=== PATIENT | female | born 1950 | race Caucasian/White ===

== ENCOUNTER 2019-12-03 14:43 | Emergency (ER) | payer MEDICARE ==
[2019-12-03 14:54] VITALS: TEMP 97.9
[2019-12-03] MEDS ORDERED: NALOXONE 0.4 MG/ML 1 ML VIAL IV STA (14:57)
[2019-12-03] MEDS ORDERED: SODIUM CHLORIDE 0.9% 1,000 ML IV STA (14:57)
[2019-12-03] MEDS ORDERED: SODIUM CHLORIDE 0.9% 500 ML 500 ML IV STA (14:57)
--- NOTE | 2019-12-03 14:59 | ED ---
Altered Mental Status HPI - General Chief Complaint: Altered Mental Status Stated Complaint: Confusion Time Seen by Provider: 12/03/19 14:56 Source: patient, RN notes reviewed, old records reviewed Mode of arrival: ambulatory Limitations: no limitations - History of Present Illness Initial Comments: This is a 69-year-old female to the ER for evaluation presents today for evaluation regards to altered mental status concern over the last 3 days patient and talking to people who aren't there not acting appropriately and drug problem and has never had problems like this before. Patient evaluating the ER denying homicidal or suicidal thoughts Drugs - Related Data Allergies Allergy/AdvReac Type Severity Reaction Status Date / Time No Known Allergies Allergy Verified 12/03/19 14:53 Review of Systems ROS Statement: Those systems with pertinent positive or pertinent negative responses have been documented in the HPI. ROS Other: All systems not noted in ROS Statement are negative. Past Medical History Past Medical History: No Reported History History of Any Multi-Drug Resistant Organisms: None Reported Past Surgical History: No Surgical Hx Reported Past Psychological History: Anxiety Smoking Status: Former smoker Past Alcohol Use History: None Reported Past Drug Use History: None Reported General Exam Limitations: no limitations Course Vital Signs 12/03/19 12/03/19 12/03/19 14:48 15:18 16:00 Temperature 97.9 F Pulse Rate 88 84 Respiratory 18 15 15 Rate Blood Pressure 146/94 131/98 O2 Sat by Pulse 99 98 Oximetry 12/03/19 17:00 Temperature Pulse Rate 76 Respiratory 15 Rate Blood Pressure 135/91 O2 Sat by Pulse 98 Oximetry - Reevaluation(s) Reevaluation #1: 12/03/19 21:56 Medical records reviewed Reevaluation #2: 12/03/19 21:56 Patient was made medically clear for psych and seen by psychiatry here in the emergency department Reevaluation #3: 12/03/19 21:56 Patient remains without suicidal or homicidal thoughts Medical Decision Making - Medical Decision Making 61 female seen at [facility] here in the ER deemed stable for discharge home patient will be discharged follow-up as an outpatient with mental health - Lab Data Result diagrams: 12/03/19 16:05 12/03/19 16:05 Lab Results 12/03/19 12/03/19 12/03/19 Range/Units 16:05 16:05 16:05 WBC 4.7 (3.8-10.6) k/uL RBC 3.96 (3.80-5.40) m/uL Hgb 11.9 (11.4-16.0) gm/dL Hct 37.1 (34.0-46.0) % MCV 93.7 (80.0-100.0) fL MCH 30.1 (25.0-35.0) pg MCHC 32.2 (31.0-37.0) g/dL RDW 12.5 (11.5-15.5) % Plt Count 201 (150-450) k/uL Neutrophils % 70 % Lymphocytes % 20 % Monocytes % 6 % Eosinophils % 1 % Basophils % 1 % Neutrophils # 3.3 (1.3-7.7) k/uL Lymphocytes # 1.0 (1.0-4.8) k/uL Monocytes # 0.3 (0-1.0) k/uL Eosinophils # 0.1 (0-0.7) k/uL Basophils # 0.0 (0-0.2) k/uL PT 10.1 (9.0-12.0) sec INR 1.0 (<1.2) APTT 23.2 (22.0-30.0) sec VBG pH 7.33 (7.31-7.41) VBG pCO2 53 H (37-51) mmHg VBG HCO3 27 (24-28) mmol/L Sodium (137-145) mmol/L Potassium (3.5-5.1) mmol/L Chloride (98-107) mmol/L Carbon Dioxide (22-30) mmol/L Anion Gap mmol/L BUN (7-17) mg/dL Creatinine (0.52-1.04) mg/dL Est GFR (CKD-EPI)AfAm (>60 ml/min/1.73 sqM) Est GFR (CKD-EPI)NonAf (>60 ml/min/1.73 sqM) Glucose (74-99) mg/dL Plasma Lactic Acid Marv (0.7-2.0) mmol/L Calcium (8.4-10.2) mg/dL Total Bilirubin (0.2-1.3) mg/dL AST (14-36) U/L ALT (4-34) U/L Alkaline Phosphatase (38-126) U/L Ammonia (<30) umol/L Creatine Kinase (30-135) U/L Troponin I (0.000-0.034) ng/mL Total Protein (6.3-8.2) g/dL Albumin (3.5-5.0) g/dL Lipase (23-300) U/L TSH (0.465-4.680) mIU/L Urine Color Urine Appearance (Clear) Urine pH (5.0-8.0) Ur Specific [place] (1.001-1.035) Urine Protein (Negative) Urine Glucose (UA) (Negative) Urine Ketones (Negative) Urine Blood (Negative) Urine Nitrite (Negative) Urine Bilirubin (Negative) Urine Urobilinogen (<2.0) mg/dL Ur Leukocyte Esterase (Negative) Salicylates mg/dL Urine Opiates Screen (NotDetected) Ur Oxycodone Screen (NotDetected) Urine Methadone Screen (NotDetected) Ur Propoxyphene Screen (NotDetected) Acetaminophen ug/mL Ur Barbiturates Screen (NotDetected) U Tricyclic Antidepress (NotDetected) Ur Phencyclidine Scrn (NotDetected) Ur Amphetamines Screen (NotDetected) U Methamphetamines Scrn (NotDetected) U Benzodiazepines Scrn (NotDetected) Urine Cocaine Screen (NotDetected) U Marijuana (THC) Screen (NotDetected) 12/03/19 12/03/19 12/03/19 Range/Units 16:05 16:05 16:05 WBC (3.8-10.6) k/uL RBC (3.80-5.40) m/uL Hgb (11.4-16.0) gm/dL Hct (34.0-46.0) % MCV (80.0-100.0) fL MCH (25.0-35.0) pg MCHC (31.0-37.0) g/dL RDW (11.5-15.5) % Plt Count (150-450) k/uL Neutrophils % % Lymphocytes % % Monocytes % % Eosinophils % % Basophils % % Neutrophils # (1.3-7.7) k/uL Lymphocytes # (1.0-4.8) k/uL Monocytes # (0-1.0) k/uL Eosinophils # (0-0.7) k/uL Basophils # (0-0.2) k/uL PT (9.0-12.0) sec INR (<1.2) APTT (22.0-30.0) sec VBG pH (7.31-7.41) VBG pCO2 (37-51) mmHg VBG HCO3 (24-28) mmol/L Sodium 139 (137-145) mmol/L Potassium 3.8 (3.5-5.1) mmol/L Chloride 109 H (98-107) mmol/L Carbon Dioxide 26 (22-30) mmol/L Anion Gap 4 mmol/L BUN 23 H (7-17) mg/dL Creatinine 0.75 (0.52-1.04) mg/dL Est GFR (CKD-EPI)AfAm >90 (>60 ml/min/1.73 sqM) Est GFR (CKD-EPI)NonAf 82 (>60 ml/min/1.73 sqM) Glucose 91 (74-99) mg/dL Plasma Lactic Acid Marv 0.6 L (0.7-2.0) mmol/L Calcium 8.6 (8.4-10.2) mg/dL Total Bilirubin 0.2 (0.2-1.3) mg/dL AST 23 (14-36) U/L ALT 14 (4-34) U/L Alkaline Phosphatase 87 (38-126) U/L Ammonia <9 (<30) umol/L Creatine Kinase 27 L (30-135) U/L Troponin I <0.012 (0.000-0.034) ng/mL Total Protein 6.2 L (6.3-8.2) g/dL Albumin 3.5 (3.5-5.0) g/dL Lipase 178 (23-300) U/L TSH 1.020 (0.465-4.680) mIU/L Urine Color Urine Appearance (Clear) Urine pH (5.0-8.0) Ur Specific [place] (1.001-1.035) Urine Protein (Negative) Urine Glucose (UA) (Negative) Urine Ketones (Negative) Urine Blood (Negative) Urine Nitrite (Negative) Urine Bilirubin (Negative) Urine Urobilinogen (<2.0) mg/dL Ur Leukocyte Esterase (Negative) Salicylates <1.0 mg/dL Urine Opiates Screen (NotDetected) Ur Oxycodone Screen (NotDetected) Urine Methadone Screen (NotDetected) Ur Propoxyphene Screen (NotDetected) Acetaminophen <10.0 ug/mL Ur Barbiturates Screen (NotDetected) U Tricyclic Antidepress (NotDetected) Ur Phencyclidine Scrn (NotDetected) Ur Amphetamines Screen (NotDetected) U Methamphetamines Scrn (NotDetected) U Benzodiazepines Scrn (NotDetected) Urine Cocaine Screen (NotDetected) U Marijuana (THC) Screen (NotDetected) 12/03/19 12/03/19 Range/Units 16:28 16:28 WBC (3.8-10.6) k/uL RBC (3.80-5.40) m/uL Hgb (11.4-16.0) gm/dL Hct (34.0-46.0) % MCV (80.0-100.0) fL MCH (25.0-35.0) pg MCHC (31.0-37.0) g/dL RDW (11.5-15.5) % Plt Count (150-450) k/uL Neutrophils % % Lymphocytes % % Monocytes % % Eosinophils % % Basophils % % Neutrophils # (1.3-7.7) k/uL Lymphocytes # (1.0-4.8) k/uL Monocytes # (0-1.0) k/uL Eosinophils # (0-0.7) k/uL Basophils # (0-0.2) k/uL PT (9.0-12.0) sec INR (<1.2) APTT (22.0-30.0) sec VBG pH (7.31-7.41) VBG pCO2 (37-51) mmHg VBG HCO3 (24-28) mmol/L Sodium (137-145) mmol/L Potassium (3.5-5.1) mmol/L Chloride (98-107) mmol/L Carbon Dioxide (22-30) mmol/L Anion Gap mmol/L BUN (7-17) mg/dL Creatinine (0.52-1.04) mg/dL Est GFR (CKD-EPI)AfAm (>60 ml/min/1.73 sqM) Est GFR (CKD-EPI)NonAf (>60 ml/min/1.73 sqM) Glucose (74-99) mg/dL Plasma Lactic Acid Marv (0.7-2.0) mmol/L Calcium (8.4-10.2) mg/dL Total Bilirubin (0.2-1.3) mg/dL AST (14-36) U/L ALT (4-34) U/L Alkaline Phosphatase (38-126) U/L Ammonia (<30) umol/L Creatine Kinase (30-135) U/L Troponin I (0.000-0.034) ng/mL Total Protein (6.3-8.2) g/dL Albumin (3.5-5.0) g/dL Lipase (23-300) U/L TSH (0.465-4.680) mIU/L Urine Color Colorless Urine Appearance Clear (Clear) Urine pH 7.0 (5.0-8.0) Ur Specific [place] 1.005 (1.001-1.035) Urine Protein Negative (Negative) Urine Glucose (UA) Negative (Negative) Urine Ketones Negative (Negative) Urine Blood Negative (Negative) Urine Nitrite Negative (Negative) Urine Bilirubin Negative (Negative) Urine Urobilinogen <2.0 (<2.0) mg/dL Ur Leukocyte Esterase Negative (Negative) Salicylates mg/dL Urine Opiates Screen Not Detected (NotDetected) Ur Oxycodone Screen Not Detected (NotDetected) Urine Methadone Screen Not Detected (NotDetected) Ur Propoxyphene Screen Not Detected (NotDetected) Acetaminophen ug/mL Ur Barbiturates Screen Not Detected (NotDetected) U Tricyclic Antidepress Not Detected (NotDetected) Ur Phencyclidine Scrn Not Detected (NotDetected) Ur Amphetamines Screen Not Detected (NotDetected) U Methamphetamines Scrn Not Detected (NotDetected) U Benzodiazepines Scrn Not Detected (NotDetected) Urine Cocaine Screen Not Detected (NotDetected) U Marijuana (THC) Screen Not Detected (NotDetected) - Radiology Data Radiology results: report reviewed (CT brain as well aare negative for acute disease), image reviewed Disposition Clinical Impression: Altered mental status, Acute psychosis Disposition: HOME SELF-CARE Instructions (If sedation given, give patient instructions): Altered Mental Status (ED) Is patient prescribed a controlled substance at d/c from ED?: No Referrals: Hussein Bullock MD [Primary Care Provider] - 1-2 days
[2019-12-03 15:18] VITALS: RESP 15
[2019-12-03 16:15] LABS: Basophils % (A) 1 %; Eosinophils # (A) 0.1 k/uL (0-0.7); Eosinophils % (A) 1 %; HCT 37.1 % (34.0-46.0); HGB 11.9 gm/dL (11.4-16.0); Lymphocytes % (A) 20 %; MCH 30.1 pg (25.0-35.0); MCHC 32.2 g/dL (31.0-37.0); MCV 93.7 fL (80.0-100.0); Mean Platelet Volume 7.7; Monocytes # (A) 0.3 k/uL (0-1.0); Monocytes % (A) 6 %; Neutrophils # (A) 3.3 k/uL (1.3-7.7); Neutrophils % (A) 70 %; Platelet Count 201 k/uL (150-450); RBC 3.96 m/uL (3.80-5.40); RDW 12.5 % (11.5-15.5); VBG PH 7.33 (7.31-7.41); WBC 4.7 k/uL (3.8-10.6)
[2019-12-03 16:25] LABS: ALT 14 U/L (4-34); AST 23 U/L (14-36); Acetaminophen <10.0 ug/mL; African American GFR (CKD) >90 (>60 ml/min/1.73 sqM); Albumin 3.5 g/dL (3.5-5.0); Alkaline Phosphatase 87 U/L (38-126); Anion Gap 4 mmol/L; Blood Urea Nitrogen 23 mg/dL (7-17); Calcium 8.6 mg/dL (8.4-10.2); Carbon Dioxide 26 mmol/L (22-30); Chloride 109 mmol/L (98-107); Creatine Kinase 27 U/L (30-135); Glucose 91 mg/dL (74-99); Lactic Acid, Venous 0.6 mmol/L (0.7-2.0); Non-African American GFR(CKD) 82 (>60 ml/min/1.73 sqM); Potassium 3.8 mmol/L (3.5-5.1); Salicylate <1.0 mg/dL; Sodium 139 mmol/L (137-145); Total Bilirubin 0.2 mg/dL (0.2-1.3); Total Protein 6.2 g/dL (6.3-8.2)
[2019-12-03 16:31] LABS: Partial Thromboplastin Time 23.2 sec (22.0-30.0); Prothrombin Time 10.1 sec (9.0-12.0)
--- NOTE | 2019-12-03 17:01 | CT ---
EXAMINATION TYPE: CT brain wo con DATE OF EXAM: 12/03/2019 COMPARISON: None INDICATION: Altered mental status. DLP: 1089.8 mGycm, Automated exposure control for dose reduction was used. CONTRAST: None CT of the brain is performed utilizing 3 mm thick sections through the posterior fossa and 3 mm thick sections through the remaining calvarium. Study is performed within 24 hours of arrival to the hosp ital. No abnormal hyperdensity is present to suggest an acute intracranial hemorrhage. No mass lesion is evident. No acute infarcts are evident. Ventricles and sulci are appropriate for the patient age. Paranasal sinuses and mastoid air cells within the [id number] are clear. IMPRESSIONS: 1. Normal CT Brain
--- NOTE | 2019-12-03 17:05 | CT ---
EXAMINATION TYPE: CT angio head neck DATE OF EXAM: 12/03/2019 HISTORY: Altered mental status. COMPARISON: None CT DLP: 341 mGycm. Automated Exposure Control for Dose Reduction was Utilized. TECHNIQUE: CTA scan of the neck is performed with IV Contrast, patient injected with 65 mL of Isovue 370, axial images are obtained, coronal and sagittal reformatted images are reviewed. Three-D recons tructed images are created on an independent workstation and reviewed. Source images are reviewed. FINDINGS: Carotid/Vascular Structures: There is a three-vessel arch. Common carotid arteries bifurcate normally into internal and external carotid arteries. Internal carotid arteries are patent to the level of th e skull base. Vertebral arteries are codominant. Cervical of [place]: Vertebral basilar system appears normal. Posterior cerebral vasculature is unrema rkable. Internal carotid arteries bifurcate normally into A1 and M1 segments. A2 segments are normal. The anterior communicating artery is patent. Posterior communicating arteries are not identified. IMPRESSION: 1. No flow-limiting stenosis bilateral carotid bifurcations. 2. Normal [place]
[2019-12-03 17:17] LABS: Appearance,Urine Clear (Clear); Bilirubin,Urine Negative (Negative); Blood,Urine Negative (Negative); Color,Urine Colorless; Glucose,Urine (UA) Negative (Negative); Ketones,Urine Negative (Negative); Leukocyte Esterase,Urine Negative (Negative); Nitrite,Urine Negative (Negative); Protein,Urine Negative (Negative); Specific Gravity,Urine 1.005 (1.001-1.035); Urobilinogen,Urine <2.0 mg/dL (<2.0)
[2019-12-03 17:22] VITALS: BP 135/91; PULSE 76
[2019-12-03 17:34] LABS: Amphetamine Screen,Urine Not Detected (NotDetected); Barbiturate Screen,Urine Not Detected (NotDetected); Benzodiazepines Screen,Urine Not Detected (NotDetected); Cocaine Screen,Urine Not Detected (NotDetected); Methadone Screen, Urine Not Detected (NotDetected); Opiate Screen,Urine Not Detected (NotDetected); Oxycodone Screen, Urine Not Detected (NotDetected); Phencyclidine Screen,Urine Not Detected (NotDetected); Tricyclic Antidepressant,Urine Not Detected (NotDetected); Urn Cannabinoid Scrn Not Detected (NotDetected)
== END 2019-12-03 22:21 | disposition home or self-care (01) ==
LOC: EC 14:43
DX: F23 Brief psychotic disorder (principal); R41.82 Altered mental status, unspecified; Z87.891 Personal history of nicotine dependence
CPT/HCPCS: 82075; 36415; 93005; 80053; 82140; 82550; 82803; 83605; 83690; 84443; 84484; 85025; 85610; 85730; 81003; 80306; 83520; 70496; 70450; 70498; 99285; 96360; 96361 ×6; G0480; Q9967; 80329

== ENCOUNTER 2019-12-13 06:00 | Inpatient (IN) | payer MEDICARE ==
--- NOTE | 2019-12-13 06:31 | ED ---
Altered Mental Status HPI - General Source: patient, family, RN notes reviewed Mode of arrival: wheelchair Limitations: no limitations <Jarvis Bahena - Last Filed: 12/13/19 11:52> <Cedric Harrington - Last Filed: 12/13/19 11:56> - General Chief Complaint: Altered Mental Status Stated Complaint: Altered mental status Time Seen by Provider: 12/13/19 06:11 - History of Present Illness Initial Comments: This is a 69-year-old female presents emergency department with family for evaluation. Patient seen here 10 days ago for similar complaints. 2 weeks ago she had a change in her mental status and which she has been confused, seen in talking to people that are not present. She has been suicidal homicidal. Herman es any drug use or alcohol abuse. Patient had full workup including labs, CT brain and CTA of the brain. Patient does not give any specific complaints. Patient states that she is brought here for evaluation and her family will be here for more information. Patient denies headache, dizziness, blurred vision, focal weakness, vomiting diarrhea constipation. (Jarvis Bahena) - Related Data Home Medications Medication Instructions Recorded Confirmed Alendronate Sodium [Fosamax] 70 mg PO Q7D 12/13/19 12/13/19 Atomoxetine HCl [Strattera] 60 mg PO DAILY 12/13/19 12/13/19 Clindamycin Topical Soln 1 applic TOPICAL BID 12/13/19 12/13/19 [Cleocin-T Topical Soln] PARoxetine [Paxil] 10 mg PO DAILY 12/13/19 12/13/19 buPROPion XL [Wellbutrin Xl] 150 mg PO DAILY 12/13/19 12/13/19 busPIRone HCl [Buspar] 10 mg PO BID 12/13/19 12/13/19 Allergies Allergy/AdvReac Type Severity Reaction Status Date / Time No Known Allergies Allergy Verified 12/13/19 08:32 Review of Systems ROS Other: All systems not noted in ROS Statement are negative. <Jarvis Bahena - Last Filed: 12/13/19 11:52> ROS Other: All systems not noted in ROS Statement are negative. <Cedric Harrington - Last Filed: 12/13/19 11:56> ROS Statement: Those systems with pertinent positive or pertinent negative responses have been documented in the HPI. Past Medical History Past Medical History: No Reported History History of Any Multi-Drug Resistant Organisms: None Reported Past Surgical History: No Surgical Hx Reported Past Psychological History: Anxiety Smoking Status: Former smoker Past Alcohol Use History: None Reported Past Drug Use History: None Reported <Jarvis Bahena - Last Filed: 12/13/19 11:52> General Exam Limitations: no limitations General appearance: alert, in no apparent distress Head exam: Present: atraumatic, normocephalic, normal inspection Eye exam: Present: normal appearance, PERRL, EOMI. Absent: scleral icterus, conjunctival injection, periorbital swelling ENT exam: Present: normal exam, normal oropharynx, mucous membranes moist, TM's normal bilaterally Neck exam: Present: normal inspection, full ROM. Absent: tenderness, meningismus, lymphadenopathy Respiratory exam: Present: normal lung sounds bilaterally. Absent: respiratory distress, wheezes, rales, rhonchi, stridor Cardiovascular Exam: Present: regular rate, normal rhythm, normal heart sounds. Absent: systolic murmur, diastolic murmur, rubs, gallop, clicks GI/Abdominal exam: Present: soft, normal bowel sounds. Absent: distended, tenderness, guarding, rebound, rigid Neurological exam: Present: alert, oriented X3, CN II-XII intact, reflexes normal, other (Finger to nose intact bilaterally without over shooting). Absent: motor sensory deficit Skin exam: Present: warm, dry, intact, normal color. Absent: rash <Jarvis Bahena - Last Filed: 12/13/19 11:52> Course Vital Signs 12/13/19 12/13/19 06:04 07:30 Temperature 98.3 F Pulse Rate 106 H 86 Respiratory 20 16 Rate Blood Pressure 151/84 144/89 O2 Sat by Pulse 100 99 Oximetry Medical Decision Making - Lab Data Result diagrams: 12/13/19 06:30 12/13/19 06:30 <Jarvis Bahena - Last Filed: 12/13/19 11:52> - Lab Data Result diagrams: 12/13/19 06:30 12/13/19 06:30 <Cedric Harrington - Last Filed: 12/13/19 11:56> - Medical Decision Making Patient was medically cleared, evaluated by EPS. Patient will be admitted for acute psychosis. Patient had clinical CERT filled out. (Jarvis Bahena) I filled out a clinical certification to have the patient admitted. I, Sam Harrington, personally saw and examined the patient. I have reviewed and agree with the PA findings, including all diagnostic interpretations and treatment plans as written unless otherwise stated. I was present for the rothman portions of any procedures performed and the inclusive time noted for any critical care statement. ot (Cedric Harrington) - Lab Data Lab Results 12/13/19 12/13/19 12/13/19 Range/Units 06:21 06:30 06:30 WBC 5.4 (3.8-10.6) k/uL RBC 4.33 (3.80-5.40) m/uL Hgb 13.5 (11.4-16.0) gm/dL Hct 40.5 (34.0-46.0) % MCV 93.7 (80.0-100.0) fL MCH 31.3 (25.0-35.0) pg MCHC 33.4 (31.0-37.0) g/dL RDW 12.6 (11.5-15.5) % Plt Count 248 (150-450) k/uL Neutrophils % 70 % Lymphocytes % 21 % Monocytes % 6 % Eosinophils % 1 % Basophils % 1 % Neutrophils # 3.8 (1.3-7.7) k/uL Lymphocytes # 1.1 (1.0-4.8) k/uL Monocytes # 0.3 (0-1.0) k/uL Eosinophils # 0.1 (0-0.7) k/uL Basophils # 0.0 (0-0.2) k/uL PT 9.5 (9.0-12.0) sec INR 0.9 (<1.2) APTT 23.3 (22.0-30.0) sec Sodium (137-145) mmol/L Potassium (3.5-5.1) mmol/L Chloride (98-107) mmol/L Carbon Dioxide (22-30) mmol/L Anion Gap mmol/L BUN (7-17) mg/dL Creatinine (0.52-1.04) mg/dL Est GFR (CKD-EPI)AfAm (>60 ml/min/1.73 sqM) Est GFR (CKD-EPI)NonAf (>60 ml/min/1.73 sqM) Glucose (74-99) mg/dL Calcium (8.4-10.2) mg/dL Total Bilirubin (0.2-1.3) mg/dL AST (14-36) U/L ALT (4-34) U/L Alkaline Phosphatase (38-126) U/L Ammonia (<30) umol/L Creatine Kinase (30-135) U/L Total Protein (6.3-8.2) g/dL Albumin (3.5-5.0) g/dL Urine Color Yellow Urine Appearance Clear (Clear) Urine pH 5.0 (5.0-8.0) Ur Specific [place] 1.023 (1.001-1.035) Urine Protein Negative (Negative) Urine Glucose (UA) Negative (Negative) Urine Ketones Negative (Negative) Urine Blood Negative (Negative) Urine Nitrite Negative (Negative) Urine Bilirubin Negative (Negative) Urine Urobilinogen <2.0 (<2.0) mg/dL Ur Leukocyte Esterase Small H (Negative) Urine RBC 1 (0-5) /hpf Urine WBC 2 (0-5) /hpf Calcium Oxalate Crystal Many H (None) /hpf Uric Acid Crystals Rare H (None) /hpf Urine Bacteria Rare H (None) /hpf Hyaline Casts 1 (0-2) /lpf Urine Mucus Rare H (None) /hpf Urine Opiates Screen Not Detected (NotDetected) Ur Oxycodone Screen Not Detected (NotDetected) Urine Methadone Screen Not Detected (NotDetected) Ur Propoxyphene Screen Not Detected (NotDetected) Ur Barbiturates Screen Not Detected (NotDetected) U Tricyclic Antidepress Not Detected (NotDetected) Ur Phencyclidine Scrn Not Detected (NotDetected) Ur Amphetamines Screen Not Detected (NotDetected) U Methamphetamines Scrn Not Detected (NotDetected) U Benzodiazepines Scrn Not Detected (NotDetected) Urine Cocaine Screen Not Detected (NotDetected) U Marijuana (THC) Screen Not Detected (NotDetected) Serum Alcohol mg/dL 12/13/19 12/13/19 Range/Units 06:30 06:30 WBC (3.8-10.6) k/uL RBC (3.80-5.40) m/uL Hgb (11.4-16.0) gm/dL Hct (34.0-46.0) % MCV (80.0-100.0) fL MCH (25.0-35.0) pg MCHC (31.0-37.0) g/dL RDW (11.5-15.5) % Plt Count (150-450) k/uL Neutrophils % % Lymphocytes % % Monocytes % % Eosinophils % % Basophils % % Neutrophils # (1.3-7.7) k/uL Lymphocytes # (1.0-4.8) k/uL Monocytes # (0-1.0) k/uL Eosinophils # (0-0.7) k/uL Basophils # (0-0.2) k/uL PT (9.0-12.0) sec INR (<1.2) APTT (22.0-30.0) sec Sodium 139 (137-145) mmol/L Potassium 4.0 (3.5-5.1) mmol/L Chloride 108 H (98-107) mmol/L Carbon Dioxide 24 (22-30) mmol/L Anion Gap 7 mmol/L BUN 21 H (7-17) mg/dL Creatinine 0.72 (0.52-1.04) mg/dL Est GFR (CKD-EPI)AfAm >90 (>60 ml/min/1.73 sqM) Est GFR (CKD-EPI)NonAf 87 (>60 ml/min/1.73 sqM) Glucose 103 H (74-99) mg/dL Calcium 9.1 (8.4-10.2) mg/dL Total Bilirubin 0.2 (0.2-1.3) mg/dL AST 29 (14-36) U/L ALT 21 (4-34) U/L Alkaline Phosphatase 94 (38-126) U/L Ammonia <9 (<30) umol/L Creatine Kinase 47 (30-135) U/L Total Protein 7.3 (6.3-8.2) g/dL Albumin 4.2 (3.5-5.0) g/dL Urine Color Urine Appearance (Clear) Urine pH (5.0-8.0) Ur Specific [place] (1.001-1.035) Urine Protein (Negative) Urine Glucose (UA) (Negative) Urine Ketones (Negative) Urine Blood (Negative) Urine Nitrite (Negative) Urine Bilirubin (Negative) Urine Urobilinogen (<2.0) mg/dL Ur Leukocyte Esterase (Negative) Urine RBC (0-5) /hpf Urine WBC (0-5) /hpf Calcium Oxalate Crystal (None) /hpf Uric Acid Crystals (None) /hpf Urine Bacteria (None) /hpf Hyaline Casts (0-2) /lpf Urine Mucus (None) /hpf Urine Opiates Screen (NotDetected) Ur Oxycodone Screen (NotDetected) Urine Methadone Screen (NotDetected) Ur Propoxyphene Screen (NotDetected) Ur Barbiturates Screen (NotDetected) U Tricyclic Antidepress (NotDetected) Ur Phencyclidine Scrn (NotDetected) Ur Amphetamines Screen (NotDetected) U Methamphetamines Scrn (NotDetected) U Benzodiazepines Scrn (NotDetected) Urine Cocaine Screen (NotDetected) U Marijuana (THC) Screen (NotDetected) Serum Alcohol <10 mg/dL Disposition <Jarvis Bahena - Last Filed: 12/13/19 11:52> <Cedric Harrington - Last Filed: 12/13/19 11:56> Clinical Impression: Acute psychosis Disposition: TRANSFER TO PSYCH HOSP/UNIT Referrals: Hussein Bullock MD [Primary Care Provider] - 1-2 days
[2019-12-13 06:44] LABS: Basophils % (A) 1 %; Eosinophils # (A) 0.1 k/uL (0-0.7); Eosinophils % (A) 1 %; HCT 40.5 % (34.0-46.0); HGB 13.5 gm/dL (11.4-16.0); Lymphocytes # (A) 1.1 k/uL (1.0-4.8); Lymphocytes % (A) 21 %; MCH 31.3 pg (25.0-35.0); MCHC 33.4 g/dL (31.0-37.0); MCV 93.7 fL (80.0-100.0); Mean Platelet Volume 7.8; Monocytes # (A) 0.3 k/uL (0-1.0); Monocytes % (A) 6 %; Neutrophils # (A) 3.8 k/uL (1.3-7.7); Neutrophils % (A) 70 %; Platelet Count 248 k/uL (150-450); RBC 4.33 m/uL (3.80-5.40); RDW 12.6 % (11.5-15.5); WBC 5.4 k/uL (3.8-10.6)
[2019-12-13 06:54] LABS: ALT 21 U/L (4-34); AST 29 U/L (14-36); African American GFR (CKD) >90 (>60 ml/min/1.73 sqM); Albumin 4.2 g/dL (3.5-5.0); Alcohol <10 mg/dL; Alkaline Phosphatase 94 U/L (38-126); Anion Gap 7 mmol/L; Blood Urea Nitrogen 21 mg/dL (7-17); Calcium 9.1 mg/dL (8.4-10.2); Carbon Dioxide 24 mmol/L (22-30); Chloride 108 mmol/L (98-107); Creatine Kinase 47 U/L (30-135); Glucose 103 mg/dL (74-99); Non-African American GFR(CKD) 87 (>60 ml/min/1.73 sqM); Sodium 139 mmol/L (137-145); Total Bilirubin 0.2 mg/dL (0.2-1.3); Total Protein 7.3 g/dL (6.3-8.2)
[2019-12-13 07:00] LABS: INR 0.9 (<1.2); Partial Thromboplastin Time 23.3 sec (22.0-30.0); Prothrombin Time 9.5 sec (9.0-12.0)
[2019-12-13 07:08] LABS: Amphetamine Screen,Urine Not Detected (NotDetected); Barbiturate Screen,Urine Not Detected (NotDetected); Benzodiazepines Screen,Urine Not Detected (NotDetected); Cocaine Screen,Urine Not Detected (NotDetected); Methadone Screen, Urine Not Detected (NotDetected); Opiate Screen,Urine Not Detected (NotDetected); Oxycodone Screen, Urine Not Detected (NotDetected); Phencyclidine Screen,Urine Not Detected (NotDetected); Tricyclic Antidepressant,Urine Not Detected (NotDetected); Urn Cannabinoid Scrn Not Detected (NotDetected)
[2019-12-13 07:19] LABS: Appearance,Urine Clear (Clear); Bacteria,Urine Rare /hpf; Bilirubin,Urine Negative (Negative); Blood,Urine Negative (Negative); Calcium Oxalate Crystals,Urine Many /hpf; Color,Urine Yellow; Glucose,Urine (UA) Negative (Negative); Hyaline Casts,Urine 1 /lpf (0-2); Ketones,Urine Negative (Negative); Leukocyte Esterase,Urine Small (Negative); Mucus,Urine Rare /hpf; Nitrite,Urine Negative (Negative); Protein,Urine Negative (Negative); RBC,Urine 1 /hpf (0-5); Specific Gravity,Urine 1.023 (1.001-1.035); Uric Acid Crystals,Urine Rare /hpf; Urobilinogen,Urine <2.0 mg/dL (<2.0); WBC,Urine 2 /hpf (0-5)
[2019-12-13] MEDS ORDERED: LORazepam 2 MG/ML INJ IV STA (12:14)
[2019-12-13] MEDS ORDERED: MAGNESIUM HYDROXIDE 2,400 MG/10 ML CUP PO PRN (12:19)
[2019-12-13] MEDS ORDERED: LORazepam 1 MG TAB PO PRN (12:19)
[2019-12-13] MEDS ORDERED: ZIPRASIDONE 20 MG VIAL IM PRN (12:19)
[2019-12-13] MEDS ORDERED: MAG HYDROX/AL HYDROX/SIMETH 30 ML CUP PO PRN (12:19)
[2019-12-13] MEDS ORDERED: ACETAMINOPHEN TAB 325 MG TAB PO PRN (12:19)
--- NOTE | 2019-12-13 21:13 | P.MDCNMH ---
History of Present Illness H&P Date: 12/13/19 Chief Complaint: Acute psychosis Patient is a 69-year-old female with a known history of depression and anxiety and previous history of smoking was petitioned by her family for psychiatric evaluation. Patient was in the ER on 12/03/2019 due to altered mental status and talking to people who are not there and not acting appropriately. Patient has been more confused during the last 2 days and was brought to the hospital again. Otherwise patient denied any complaints of headache or dizziness now. No fever no chills. No chest pain or shortness of breath. Denies any weakness. No nausea vomiting or diarrhea or abdominal pain. CT head on 12/03/2019 showed no acute intracranial process CT angiogram showed no flow-limiting stenosis bilateral carotid trifurcations. Normal [place] of [place]. Laboratory data reviewed. Sodium 139, potassium 4.0 chloride 108, BUN 21 creatinine 0.72 liver enzymes are not elevated urine negative for infection UDS negative WBC 5.4, hemoglobin 13.5, platelets 248 Vitals blood pressure 150/84 pulse is 106 and respiration 20 saturating well on room air. Review of Systems Constitutional: Patient denies any fever or chills . No generalized weakness or weight loss. Abdomen: Patient denied nausea vomiting and diarrhea and abdominal pain. Cardiovascular: Patient denies any chest pain or short of breath no palpitations. Respiratory: patient denied any cough is from production. No shortness of breath Neurologic: Patient denied any numbness or tingling headache. Musculoskeletal: Patient denies any complaints of joint swelling or deformity.right arm swelling Complete review of systems could not be obtained from the patient. Past Medical History Past Medical History: No Reported History History of Any Multi-Drug Resistant Organisms: None Reported Past Surgical History: No Surgical Hx Reported Past Psychological History: Anxiety Smoking Status: Former smoker Past Alcohol Use History: None Reported Past Drug Use History: None Reported Medications and Allergies Home Medications Medication Instructions Recorded Confirmed Type Alendronate Sodium [Fosamax] 70 mg PO Q7D 12/13/19 12/13/19 History Atomoxetine HCl [Strattera] 60 mg PO DAILY 12/13/19 12/13/19 History Clindamycin Topical Soln 1 applic TOPICAL BID 12/13/19 12/13/19 History [Cleocin-T Topical Soln] PARoxetine [Paxil] 10 mg PO DAILY 12/13/19 12/13/19 History buPROPion XL [Wellbutrin Xl] 150 mg PO DAILY 12/13/19 12/13/19 History busPIRone HCl [Buspar] 10 mg PO BID 12/13/19 12/13/19 History Allergies Allergy/AdvReac Type Severity Reaction Status Date / Time No Known Allergies Allergy Verified 12/13/19 08:32 Physical Exam Vitals: Vital Signs Temp Pulse Pulse Resp BP BP Pulse Ox 12/13/19 12:44 97.7 F 108 H 16 134/88 95 12/13/19 12:27 98.4 F 97 18 138/90 97 12/13/19 07:30 86 16 144/89 99 12/13/19 06:04 98.3 F 106 H 20 151/84 100 Intake and Output 12/13/19 12/13/19 12/13/19 06:59 14:59 22:59 Other: Weight 57.606 kg PHYSICAL EXAMINATION: Patient is lying in the bed comfortably, no acute distress, awake alert and oriented x2.. HEENT: Normocephalic. Neck is supple. Pupils reactive. Nostrils clear. Oral cavity is moist. Ears reveal no drainage. Neck reveals no JVD, carotid bruits, or thyromegaly. CHEST EXAMINATION: Trachea is central. Symmetrical expansion. Lung spears clear to auscultation and percussion. CARDIAC: Normal S1, S2 with no gallops. No murmurs ABDOMEN: Soft. Bowel sounds normal. No organomegaly. No abdominal bruits. Extremities: reveal no edema. No clubbing or cyanosis. Right upper activity swelling about the elbow up to shoulder with tenderness noted on the medial side. Neurologically awake, alert, oriented x2 with well-coordinated movements. No focal deficits noted Skin: No rash or skin lesions. Psychiatric: Coperative. Could not be assessed completely. Musculoskeletal: No joint swelling or deformity. Normal range of motion. Cranial Nerve Examination - Cranial Nerves Cranial Nerve I- Olfactory: Intact Cranial Nerve II- Optic: Intact Cranial Nerve III- Oculomotor: Intact Cranial Nerve IV- Trochlear: Intact Cranial Nerve V- Trigeminal: Intact Cranial Nerve - Abducens: Intact Cranial Nerve VII- Facial: Intact Cranial Nerve VIII- Auditory: Intact Cranial Nerve IX- Glossopharyngeal: Intact Cranial Nerve X- Vagus: Intact Cranial Nerve XI- Accessory: Intact Cranial Nerve XII- Hypoglossal: Intact Results CBC & Chem 7: 12/13/19 06:30 12/13/19 06:30 Labs: Abnormal Lab Results - Last 24 Hours (Table) 12/13/19 12/13/19 Range/Units 06:21 06:30 Chloride 108 H (98-107) mmol/L BUN 21 H (7-17) mg/dL Glucose 103 H (74-99) mg/dL Ur Leukocyte Esterase Small H (Negative) Calcium Oxalate Crystal Many H (None) /hpf Uric Acid Crystals Rare H (None) /hpf Urine Bacteria Rare H (None) /hpf Urine Mucus Rare H (None) /hpf Assessment and Plan Assessment: Acute psychosis. Petitioned by her family. Anxiety/depression Previous history of smoking DVT prophylaxis with early ambulation Plan: Patient will be continued on current psychiatric medications and management. Will check TSH, B12, a1c and folate levels. We will continue to follow with you and further recommendations based on the clinical course. Thank you for your consult.
[2019-12-14 13:00] LABS: Hemoglobin A1C 5.2 % (4.0-6.0)
--- NOTE | 2019-12-14 13:20 | P.HP ---
Psychiatric H&P - . H&P Date: 12/14/19 History & Physical: IDENTIFYING DATA: She is a 69-year-old [place]ese female admitted to the psychiatric unit involuntarily. HISTORY OF PRESENT ILLNESS: Her daughter completed a petition that described a marked change in her behavior. According to the petition the patient has not been sleeping or eating. She was talking to relatives. She also locked herself in the bathroom and was pouring "chemicals" on the train with the windows closed. I reviewed the medical record, interviewed patient and spoke with her daughter in the telephone. When I approached her room I heard her talking loudly as though she were caring on conversation with a roommate but she was in the room alone. When asked her who she was speaking to she replied "no one." She came to my office voluntarily but provided little information. She was guarded and suspicious. She stated that she came in the hospital because "my daughter wanted me here." She was focused on somatic symptoms complaining of "chest pressure" and "indigestion" but when I summarized her concerns she denied that she had expressed concern about her physical health. She admitted that she has had difficulty sleeping and has lost her appetite. She denied changes in her interests or activities. She denied that she experienced thoughts of or suicide. When asked questions about feelings of guilt she talked about going to [facility] for committing a crime. She refused to talk about this concern and referred me to her woodworker helper. She denied experiencing auditory, visual or olfactory hallucinations. She denied ideas of reference, thought insertion, thought broadcasting or thought control. She denied use of alcohol or drugs. Her daughter stated that she is normally active person. For example, she goes to the gym 3-5 days per week. Over the last few weeks she's been very different. She is talking herself and talking to relatives. She talks to her, , first and also talks with her mother. Her daughter described her having animated conversations and asking these imaginary people to "quiet down" when other people in the room. She is not eating and lays in bed for half day. In retrospect, her daughter believes that the change began 1 month ago and became "extreme" over the last 2-3 weeks. She asked her daughter to take her "anxiety medications" from her because she was going to [facility]. Her daughter explained that her mother developed a belief that she had committed a crime because "several years ago" she signed her son-in-law's name to help her daughter nagel a check that was issued and a daughter and the daughter's 's name. PAST PSYCHIATRIC HISTORY: She denied a history of psychiatric hospitalizations or psychiatric treatment. However, her daughter stated that she's been treated by a primary care provider in [facility] for many years for "anxiety". Her daughter read the labels of various medications including bupropion, BuSpar, Paroxetine and atomoxetine. PAST MEDICAL HISTORY: She denied history of major medical illnesses ALLERGIES: Known drug ALLERGIES SUBSTANCE USE HISTORY: Denied FAMILY PSYCHIATRIC/SUBSTANCE USE HISTORY: She is unaware of family history of mental health or substance use problems LEGAL HISTORY: She has no history of legal problems. SOCIAL HISTORY: She remarried after the of her first who is also the father of her 2 daughters. She has been to her second for over 30 years. They moved from [facility] to [facility] last summer to be closer to her family. She is retired and lives with her . MENTAL STATUS EXAM: She presented as a disheveled appearing small framed 69-year-old female who was guarded and suspicious. She made intermittent eye contact. She had no distinguishing features or prominent physical abno rmalities. She had a distressed facial expression. She was alert and oriented to person, place and time. She had marked psychomotor retardation but no abnormal involuntary movements. Her speech was nonspontaneous. Affect was depressed, anxious, paranoid and suspicious. She denied suicidal ideation and wishes. She denied homicidal ideation. She denied feeling hopeless, helpless or worthless. She ruminated about her physical symptoms but did not express clear ideas reference. She has a fixed delusion of guilt. Her thinking was concrete but his associations were goal directed. She was responding to internal stimuli when I first approached but not during our [id number] interview. I attempted to complete the Mini-Mental State Exam. She was guarded and refused to complete many of the sections. She showed no impairment with orientation, registration, attention, recall. She had no impairment of language. She refused to follow 3 stage command. She read and obeyed the sentence to close her eyes. But after at this exercise she refused to reopen her eyes and wrote a sentence and attempted to copy the intersecting pentagrams with her eyes closed. STRENGTHS: Supportive family, good physical health, stable housing, stable income WEAKNESSES: Major mood disorder with psychotic features IMPRESSION: She is a 69-year-old [place]ese female who presented to the psychiatric unit involuntarily with recent change in her thinking, mood, perception and behavior. She was minimally cooperative with the exam, markedly paranoid and responding to internal stimuli. She has history of treatment of the mood or anxiety disorder by her primary care provider. She has signs and symptoms consistent with a major mood disorder complicated by psychotic symptoms. There is no history of drug or alcohol problems. She had no apparent cognitive impairments. She should be treated inpatient basis with combination of psychopharmacology and multimodal therapy. 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 Safety precautions. Proceed with involuntary hospitalization. Consult medicine for initial physical exam and medical history. pharmaceutical worker to complete initial psychosocial assessment to coordinate discharge and aftercare services. Begin Seroquel 50 mg at bedtime and titrated to 300 mg at bedtime for the treatment of mood and psychotic symptoms. Consider addition of an antidepressant medication if depression and/or anxiety symptoms did not remit. Encourage participation in therapeutic groups and activities. Evaluate clinical status response to treatment daily basis. Allergies Allergy/AdvReac Type Severity Reaction Status Date / Time No Known Allergies Allergy Verified 12/13/19 08:32 Vital Signs Temp 98.3 F 12/14/19 05:58 Pulse 99 12/14/19 05:58 Resp 14 12/14/19 05:58 BP 126/85 12/14/19 05:58 Pulse Ox 95 12/13/19 12:44 Laboratory Last Values WBC 5.4 k/uL (3.8-10.6) 12/13/19 06:30 RBC 4.33 m/uL (3.80-5.40) 12/13/19 06:30 Hgb 13.5 gm/dL (11.4-16.0) 12/13/19 06:30 Hct 40.5 % (34.0-46.0) 12/13/19 06:30 MCV 93.7 fL (80.0-100.0) 12/13/19 06:30 MCH 31.3 pg (25.0-35.0) 12/13/19 06:30 MCHC 33.4 g/dL (31.0-37.0) 12/13/19 06:30 RDW 12.6 % (11.5-15.5) 12/13/19 06:30 Plt Count 248 k/uL (150-450) 12/13/19 06:30 Neutrophils % 70 % 12/13/19 06:30 Lymphocytes % 21 % 12/13/19 06:30 Monocytes % 6 % 12/13/19 06:30 Eosinophils % 1 % 12/13/19 06:30 Basophils % 1 % 12/13/19 06:30 Neutrophils # 3.8 k/uL (1.3-7.7) 12/13/19 06:30 Lymphocytes # 1.1 k/uL (1.0-4.8) 12/13/19 06:30 Monocytes # 0.3 k/uL (0-1.0) 12/13/19 06:30 Eosinophils # 0.1 k/uL (0-0.7) 12/13/19 06:30 Basophils # 0.0 k/uL (0-0.2) 12/13/19 06:30 PT 9.5 sec (9.0-12.0) 12/13/19 06:30 INR 0.9 (<1.2) 12/13/19 06:30 APTT 23.3 sec (22.0-30.0) 12/13/19 06:30 Sodium 139 mmol/L (137-145) 12/13/19 06:30 Potassium 4.0 mmol/L (3.5-5.1) 12/13/19 06:30 Chloride 108 mmol/L (98-107) H 12/13/19 06:30 Carbon Dioxide 24 mmol/L (22-30) 12/13/19 06:30 Anion Gap 7 mmol/L 12/13/19 06:30 BUN 21 mg/dL (7-17) H 12/13/19 06:30 Creatinine 0.72 mg/dL (0.52-1.04) 12/13/19 06:30 Est GFR (CKD-EPI)AfAm >90 (>60 ml/min/1.73 sqM) 12/13/19 06:30 Est GFR (CKD-EPI)NonAf 87 (>60 ml/min/1.73 sqM) 12/13/19 06:30 Glucose 103 mg/dL (74-99) H 12/13/19 06:30 Calcium 9.1 mg/dL (8.4-10.2) 12/13/19 06:30 Total Bilirubin 0.2 mg/dL (0.2-1.3) 12/13/19 06:30 AST 29 U/L (14-36) 12/13/19 06:30 ALT 21 U/L (4-34) 12/13/19 06:30 Alkaline Phosphatase 94 U/L (38-126) 12/13/19 06:30 Ammonia <9 umol/L (<30) 12/13/19 06:30 Creatine Kinase 47 U/L (30-135) 12/13/19 06:30 Total Protein 7.3 g/dL (6.3-8.2) 12/13/19 06:30 Albumin 4.2 g/dL (3.5-5.0) 12/13/19 06:30 Triglycerides 61 mg/dL (<150) 12/14/19 07:22 Cholesterol 170 mg/dL (<200) 12/14/19 07:22 LDL Cholesterol, Calc 81 mg/dL (0-99) 12/14/19 07:22 HDL Cholesterol 77 mg/dL (40-60) H 12/14/19 07:22 Urine Color Yellow 12/13/19 06:21 Urine Appearance Clear (Clear) 12/13/19 06:21 Urine pH 5.0 (5.0-8.0) 12/13/19 06:21 Ur Specific [place] 1.023 (1.001-1.035) 12/13/19 06:21 Urine Protein Negative (Negative) 12/13/19 06:21 Urine Glucose (UA) Negative (Negative) 12/13/19 06:21 Urine Ketones Negative (Negative) 12/13/19 06:21 Urine Blood Negative (Negative) 12/13/19 06:21 Urine Nitrite Negative (Negative) 12/13/19 06:21 Urine Bilirubin Negative (Negative) 12/13/19 06:21 Urine Urobilinogen <2.0 mg/dL (<2.0) 12/13/19 06:21 Ur Leukocyte Esterase Small (Negative) H 12/13/19 06:21 Urine RBC 1 /hpf (0-5) 12/13/19 06:21 Urine WBC 2 /hpf (0-5) 12/13/19 06:21 Calcium Oxalate Crystal Many /hpf (None) H 12/13/19 06:21 Uric Acid Crystals Rare /hpf (None) H 12/13/19 06:21 Urine Bacteria Rare /hpf (None) H 12/13/19 06:21 Hyaline Casts 1 /lpf (0-2) 12/13/19 06:21 Urine Mucus Rare /hpf (None) H 12/13/19 06:21 Urine Opiates Screen Not Detected (NotDetected) 12/13/19 06:21 Ur Oxycodone Screen Not Detected (NotDetected) 12/13/19 06:21 Urine Methadone Screen Not Detected (NotDetected) 12/13/19 06:21 Ur Propoxyphene Screen Not Detected (NotDetected) 12/13/19 06:21 Ur Barbiturates Screen Not Detected (NotDetected) 12/13/19 06:21 U Tricyclic Antidepress Not Detected (NotDetected) 12/13/19 06:21 Ur Phencyclidine Scrn Not Detected (NotDetected) 12/13/19 06:21 Ur Amphetamines Screen Not Detected (NotDetected) 12/13/19 06:21 U Methamphetamines Scrn Not Detected (NotDetected) 12/13/19 06:21 U Benzodiazepines Scrn Not Detected (NotDetected) 12/13/19 06:21 Urine Cocaine Screen Not Detected (NotDetected) 12/13/19 06:21 U Marijuana (THC) Screen Not Detected (NotDetected) 12/13/19 06:21 Serum Alcohol <10 mg/dL 12/13/19 06:30 12/14/19 08:57 12/14/19 13:05
[2019-12-14] MEDS: QUEtiapine 50 MG TAB PO SCH (20:37)
[2019-12-15] MEDS: SERTRALINE 25 MG TAB PO SCH ×2 (08:58→09:01)
--- NOTE | 2019-12-15 11:33 | P.PN ---
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 I spoke with the hospitalist from the [facility] yesterday afternoon about her . Apparently he was admitted to medicine for the evaluation of an acute change in his mental status. His imaging studies were not consistent with an acute CVA. The hospitalist is evaluating the possibility of environmental conta mination and ordered test for blood, mercury arsenic. The patient was talking gibberish. She would not answer questions. She slept 6 hours last night and attended to therapeutic groups. Mental status exam: She presented as a thin, frail and disheveled appearing elderly woman who is laying in bed. She would not get out of bed or make eye contact. Her speech was spontaneous with decreased volume. Her affect was anxious. She did not express suicidal ideation or homicidal ideation. She did not express clear ideas reference, paranoid ideation or delusional thoughts. Thinking was disorganized, concrete and incoherent. She was speaking in [place] and talking clang associations. She was also talking herself as though she were responding to internal stimuli. Assessment: She remains markedly psychotic. The admission of both her and her for marked changes in mental status is suggestive of family and environmental contaminant. Plan: Continue inpatient hospitalization. Continue safety precautions. Continue titration of Seroquel. Begin Zoloft 25 mg daily. Awaiting the results of the heavy metal tests for her . If any are positive and will obtain similar test. Encourage participation in therapeutic groups and activities. Evaluate clinical status response to treatment daily basis.
[2019-12-15] MEDS: QUEtiapine 50 MG TAB PO SCH (21:38)
[2019-12-16] MEDS: SERTRALINE 25 MG TAB PO SCH (08:36)
--- NOTE | 2019-12-16 16:58 | P.PN ---
Progress Note - Text Progress Note Date: 12/16/19 Interval history: Patient seen in [facility] today. She relays that she is not sure how much she slept last night. She says she takes the medications as prescribed by the doctor. She does not seem to verbalize any adverse psychotropic medication side effects. Mental status exam: She is alert and cooperative with the interview. Her affect overall is restricted. She describes her mood is doing well. She denies any thoughts of harm to self or others. She denies any hallucinations. She does not display any agitation. Plan: Patient will be maintained on current psychotropic medication regimen. Continue to monitor for any medication side effects and monitor her ongoing response to treatment.
[2019-12-16] MEDS ORDERED: QUEtiapine 100 MG TAB PO SCH (21:00)
[2019-12-16 22:26] LABS: Glucose,Whole Blood 115 mg/dL (75-99)
[2019-12-16] MEDS: SODIUM CHLORIDE 0.9% 1,000 ML IV SCH (23:20)
[2019-12-16] MEDS: ONDANSETRON ODT 4 MG TAB PO PRN ×2 (23:20→23:55)
[2019-12-17 02:28] LABS: Basophils % (A) 0 %; Eosinophils % (A) 1 %; HCT 41.2 % (34.0-46.0); HGB 13.8 gm/dL (11.4-16.0); Lymphocytes # (A) 0.5 k/uL (1.0-4.8); Lymphocytes % (A) 7 %; MCH 31.9 pg (25.0-35.0); MCHC 33.4 g/dL (31.0-37.0); MCV 95.3 fL (80.0-100.0); Mean Platelet Volume 7.6; Monocytes # (A) 0.4 k/uL (0-1.0); Monocytes % (A) 4 %; Neutrophils # (A) 6.9 k/uL (1.3-7.7); Neutrophils % (A) 87 %; Platelet Count 227 k/uL (150-450); RBC 4.32 m/uL (3.80-5.40); RDW 12.6 % (11.5-15.5); WBC 7.9 k/uL (3.8-10.6)
[2019-12-17 02:36] LABS: African American GFR (CKD) >90 (>60 ml/min/1.73 sqM); Anion Gap 7 mmol/L; Blood Urea Nitrogen 23 mg/dL (7-17); Calcium 9.4 mg/dL (8.4-10.2); Carbon Dioxide 26 mmol/L (22-30); Chloride 103 mmol/L (98-107); Glucose 149 mg/dL (74-99); Magnesium 1.9 mg/dL (1.6-2.3); Non-African American GFR(CKD) 84 (>60 ml/min/1.73 sqM); Potassium 4.2 mmol/L (3.5-5.1); Sodium 136 mmol/L (137-145)
[2019-12-17] MEDS ORDERED: SODIUM CHLORIDE 0.9% 1,000 ML IV SCH (09:01)
[2019-12-17] MEDS: SODIUM CHLORIDE 0.9% 1,000 ML IV SCH (09:25)
[2019-12-17] MEDS: SERTRALINE 25 MG TAB PO SCH (09:44)
--- NOTE | 2019-12-17 10:40 | P.PN ---
Progress Note - Text Progress Note Date: 12/17/19 Alcohol history: Patient is seen in [facility] again today. Per staffing today patient had an episode last night that were there was concern of a syncopal episode with some vomiting per chart noting. a team was called and patient was started on IV fluids. Patient is cooperative to come to the interview room. She says she feels well physically today. She makes reference to having been poisoned with rat poison. She states she is taking the medications as prescribed. She does not seem to voice any adverse psychotropic medication side effects. Mental status exam: She is alert and cooperative with the interview. Her affect overall is restricted. Her mood she describes is doing well. She denies any thoughts of harm to self or others. She does not verbalize any auditory or visual hallucinations. Thought content includes thoughts of being poisoned with rat poison. Several times during the session she appears to use neologisms. She does not display any agitation. Plan: We'll maintain current psychotropic medication regimen at this point in time we will monitor her blood pressure and monitor for any medication side effects. Continue to monitor her ongoing response to treatment. We will have medical following up.
[2019-12-17] MEDS ORDERED: ONDANSETRON ODT 4 MG TAB PO PRN (14:42)
[2019-12-17] MEDS: PANTOPRAZOLE 40 MG TABLET PO SCH (15:42)
[2019-12-17] MEDS ORDERED: QUEtiapine 100 MG TAB PO SCH (21:00)
[2019-12-18] MEDS: PANTOPRAZOLE 40 MG TABLET PO SCH (10:07)
[2019-12-18] MEDS: SERTRALINE 25 MG TAB PO SCH (10:07)
--- NOTE | 2019-12-18 11:58 | P.PN ---
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 Her 's tests for heavy metals was negative suggesting there is no environmental cause for her psychosis. She would not get out of bed this morning. 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 She talked about eating some foods that had "red pills". She firmly believe that she was poisoned and could not work. I spoke with nursing who stated that she was complaining of not being able to walk over the weekend. Mental status exam: She presented as a thin, frail and disheveled appearing elderly woman who is laying in bed. She would not get out of bed or make eye contact. Her speech was spontaneous with decreased volume. Her affect was guarded and suspicious. She did not express suicidal ideation or homicidal ideation. She has a clear and fixed delusional belief that she is being poisoned and as a result is handicapped. Her thinking was concrete but not diso rganized. She was also talking herself as though she were responding to internal stimuli. Assessment: She is paranoid and expresses a fixed paranoid delusional belief but her thinking is not disorganized and incoherent. Plan: Continue inpatient hospitalization. Continue safety precautions. Increase Seroquel to 200 mg at bedtime. Continue Zoloft 25 mg daily. If she is unable to tolerate the increase of Seroquel and switch over to a less sedating second-generation antipsychotic. Encourage participation in therapeutic groups and activities. Evaluate clinical status response to treatment daily basis.
[2019-12-18] MEDS: QUEtiapine 200 MG TAB PO SCH (20:34)
[2019-12-18] MEDS ORDERED: QUEtiapine 100 MG TAB PO SCH (21:00)
[2019-12-19] MEDS: PANTOPRAZOLE 40 MG TABLET PO SCH (09:36)
[2019-12-19] MEDS: SERTRALINE 25 MG TAB PO SCH (09:36)
--- NOTE | 2019-12-19 12:44 | P.PN ---
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 She was given laying in bed and refused to get out of bed for the interview. She denied problems or concerns and did not perseverate about her leg being paralyzed. When I invited her to my office she replied that she would "rather not." She refused her morning dose of Zoloft. When I asked her her reason she alleged that it was not prescribed by "Dr. Bullock ... I will not take any medication that is not prescribed by Dr. Bullock." She took the 200 mg dose of Seroquel last night. She has not attended therapeutic groups or activities. She spends most for time in bed a long not interacting with staff or peers. She did not eat breakfast this morning. Mental status exam: She presented as a thin, frail and disheveled appearing elderly woman who is laying in bed. She would not get out of bed but made eye contact. She was oriented to person, month and year. Her speech was spontaneous with decreased volume. Her affect was guarded and suspicious. She did not express suicidal ideation or homicidal ideation. She has a clear and fixed delusional belief that she is being poisoned and as a result is h andicapped. Her thinking was concrete but not disorganized. She was also talking herself as though she were responding to internal stimuli. Assessment: She remains paranoid but did not express clear delusional beliefs today. Plan: Continue inpatient hospitalization. Continue safety precautions. Monitor hydration and diet. Continue Seroquel to 200 mg at bedtime and titrated according to clinical response and tolerance. Increase Zoloft 50 mg daily. If she is unable to tolerate the increase of Seroquel and switch over to a less sedating second-generation antipsychotic. If she refuses antipsychotic limited to switch to an antipsychotic available as a long-term injectable. Encourage participation in therapeutic groups and activities. Evaluate clinical status response to treatment daily basis.
[2019-12-19] MEDS: QUEtiapine 200 MG TAB PO SCH (21:26)
[2019-12-20] MEDS: PANTOPRAZOLE 40 MG TABLET PO SCH ×2 (09:32→09:34)
[2019-12-20] MEDS: SERTRALINE 50 MG TAB PO SCH ×2 (09:32→09:34)
--- NOTE | 2019-12-20 13:38 | P.PN ---
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 She was given laying in bed and refused to get out of bed for the interview. She denied problems or concerns including not requesting discharge. She refused the bedtime dose of Seroquel as well as a morning dose of Zoloft. She again stated she will not take a medication that is not prescribed by her primary care provider, Dr. Bullock. She has not attended therapeutic groups or activities. She spends most for time in bed a long not interacting with staff or peers. She did not eat dinner last night or breakfast this morning. Mental status exam: She presented as a thin, frail and disheveled appearing elderly woman who is laying in bed. She would not get out of bed but made eye contact. She was oriented to person, month and year. Her speech was spontaneous with decreased volume. Her affect was guarded and suspicious. She did not express suicidal ideation or homicidal ideation. She has a clear and fixed delusional belief that she is being poisoned and as a result is handicapped. Her thinking was concrete but not disorganized. She was also talking herself as though she were responding to internal stimuli. Assessment: She is now refusing all psychotropic medications and not eating. Plan: Continue inpatient hospitalization. Continue safety precautions. Probate hearing is scheduled for 12/27/2019 Monitor hydration and diet. Continue Seroquel to 200 mg at bedtime and Zoloft 50 mg daily and titrated according to clinical response and tolerance. Investigate if we can arrange for her to speak with her primary care provider about our treatment recommendations. Once we receive a treatment order we can administer antipsychotic medication IM and transition to a long-acting injectable. Monitor her nutrition and hydration status. Encourage participation in therapeutic groups and activities. Evaluate clinical status response to treatment daily basis.
[2019-12-20 14:45] VITALS: BMI 24.0
[2019-12-20] MEDS: QUEtiapine 200 MG TAB PO SCH (22:15)
[2019-12-21] MEDS: PANTOPRAZOLE 40 MG TABLET PO SCH (09:18)
[2019-12-21] MEDS: SERTRALINE 50 MG TAB PO SCH (09:19)
--- NOTE | 2019-12-21 14:29 | P.PN ---
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 She was sitting on the side of her bed and to come into my office for the interview. She was speaking incoherently and what may have been a battalion. She refused to speak in Italian although she appeared to understand. She again refused the bedtime dose of Seroquel as well as a morning dose of Zoloft. She again stated she will not take a medication that is not prescribed by her primary care provider, Dr. Bullock. I explained that her plan is to proceed with a request for an involuntary treatment order. Once we obtain the order then would recommend treatment with long acting injectable antipsychotic. She did not eat breakfast lunch or dinner yesterday or breakfast or lunch today. Basic metabolic panel from 12/17/2019 showed a decline in the serum sodium and an increase in BUN to 136 and 23 respectively. Mental status exam: She presented as a thin, frail and disheveled appearing elderly woman who is laying in bed. She made eye contact. She was oriented to person, month and year. Her speech was spontaneous and nonsensical Her affect was guarded and suspicious. She did not express suicidal ideation or homicidal ideation. She has a clear and fixed delusional belief that she is being poisoned and as a result is handicapped. Her thinking was concrete but not disorganized. She was also talking herself as though she were responding to internal stimuli. Assessment: She remains severely mentally ill and is refusing treatment with an antipsychotic medication Plan: Continue inpatient hospitalization. Continue safety precautions. Probate hearing is scheduled for 12/27/2019 Monitor hydration and diet. Discontinue Seroquel and begin Prolixin 5 mg daily and preparation for the transition to a long-acting injectable antipsychotic. Once we receive a treatment order we can administer antipsychotic medication IM and transition to a long-acting injectable. Repeat basic metabolic panel tomorrow morning. Monitor her nutrition and hydration status. Encourage participation in therapeutic groups and activities. Evaluate clinical status response to treatment daily basis.
[2019-12-22] MEDS: SERTRALINE 50 MG TAB PO SCH (10:30)
[2019-12-22] MEDS: PANTOPRAZOLE 40 MG TABLET PO SCH (10:30)
--- NOTE | 2019-12-22 13:32 | P.PN ---
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 She refused to speak with me this morning she stated that she would not speak with me without her wedding planning internship present. She then ordered me out of her room. She refused her morning dose of Prolixin and Zoloft. She also refuses her blood draw this morning. She ate 75% of dinner last night and half of her breakfast this morning. Mental status exam: She presented as a thin, frail and disheveled appearing elderly woman who is laying in bed. She made eye contact. She was irritable, guarded and suspicious. She did not express suicidal ideation or homicidal ideation. Her thinking was concrete but not disorganized. She was also talking herself as though she were responding to internal stimuli. Assessment: She remains severely mentally ill and is refusing treatment all treatment. Plan: Continue inpatient hospitalization. Continue safety precautions. Probate hearing is scheduled for 12/27/2019. Monitor hydration and diet. DContinue Prolixin 5 mg daily and preparation for the transition to a long-acting injectable antipsychotic. Once we receive a treatment order we can administer antipsychotic medication IM and transition to a long-acting injectable. Repeat basic metabolic panel tomorrow morning. Encourage participation in therapeutic groups and activities. Evaluate clinical status response to treatment daily basis.
[2019-12-23] MEDS: PANTOPRAZOLE 40 MG TABLET PO SCH (08:31)
[2019-12-23] MEDS: SERTRALINE 50 MG TAB PO SCH (08:31)
--- NOTE | 2019-12-23 13:55 | P.PN ---
Progress Note - Text Interval history: The patient is found in her room. She refuses to speak with me today. She indicates that she needs proof that I have obtained permission from her primary care physician Dr. Bullock before she will speak with me. In reviewing the record she has been refusing the Zoloft and Prolixin. She did not eat breakfast this morning but did eat half of her dinner yesterday as well as all of her lunch yesterday. She has been isolating in her room today. Earlier I did observe her in the dining room however for lunch. Vital signs reviewed. Mental status exam: The patient is a short statured thin female appearing her stated age. She is found in her room she refuses to engage in a conversation in an interview room. She refuses to answer any questions. She appears to be in no physical distress. Eye contact was appropriate she had spontaneous speech that was nonpressured. She appeared paranoid and guarded. Insight and judgment appears to be impaired. She demonstrates no verbal or physical aggressiveness she demonstrates no involuntary repetitive movements. She appears to be standing and ambulating without any difficulty. Plan: The patient is refusing care, we will continue to monitor medication compliance in her food intake, we are offering psychotropic medication. It appears she has a court hearing on December 26. We will continue to monitor her for safety. She continues to require inpatient psychiatric hospitalization.
[2019-12-24] MEDS: PANTOPRAZOLE 40 MG TABLET PO SCH (07:44)
[2019-12-24] MEDS: SERTRALINE 50 MG TAB PO SCH (07:44)
--- NOTE | 2019-12-24 12:23 | P.PN ---
Progress Note - Text Interval history: The patient is found in her room lying in bed. She is awake. She very quickly states that she will not respond to any of my questions, she refuses to meet with me. She demands that her program management professional be present. She has been isolating in her room. It appears she did not eat breakfast she ate 25% of her dinner last evening and 100% of her lunch yesterday, she did not eat breakfast yesterday. No reports of any behavioral disturbances. Mental status exam: The patient's female appearing her stated age she is lying in bed she makes eye contact she is irritable and is quick to dismiss me from her room. She refuses to engage in conversation or follow me to an interview room. She demands to have her real estate attorney present. Insight and judgment appear to be poor. She is in no physical distress she demonstrates no involuntary repetitive movements. She is lying in bed covered to her neck with a blanket. Plan: The patient's will be monitored for safety, vital signs reviewed, we will continue to track her food and water intake. She requires continued psychiatric hospitalization for evaluation and treatment.
[2019-12-25] MEDS: PANTOPRAZOLE 40 MG TABLET PO SCH (09:42)
[2019-12-25] MEDS: SERTRALINE 50 MG TAB PO SCH (09:43)
--- NOTE | 2019-12-25 11:58 | P.PN ---
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 She was pacing her room with her hands folded. Again, she told me she does not want to speak with me and would only speak with Dr. Bullock. Nursing noted she'll only slept 4 hours last night. She is refusing all prescribed medications. She's had no episodes of behavioral dyscontrol and has received no when necessary medications. She ate lunch yesterday and half of her dinner. She refused repeat blood draw. Mental status exam: She presented as a thin, frail and disheveled appearing elderly woman who pacing her room with her hands folded in a praying position. She made intermittent eye contact. She was irritable, guarded and suspicious. She did not express suicidal ideation or homicidal ideation. She had poverty of speech and poverty of content. She was also talking herself as though she were responding to internal stimuli. Assessment: She remains severely mentally ill and is refusing treatment all treatment. Plan: Continue inpatient hospitalization. Continue safety precautions. Probate hearing is scheduled for 12/27/2019. Monitor hydration and diet. Continue Prolixin 5 mg daily and preparation for the transition to a long-acting injectable antipsychotic. Once we receive a treatment order we can administer antipsychotic medication IM and transition to a long-acting injectable. We will need to obtain a basic metabolic panel after the court order. Encourage participation in therapeutic groups and activities. Evaluate clinical status response to treatment daily basis.
[2019-12-26] MEDS: PANTOPRAZOLE 40 MG TABLET PO SCH (08:39)
[2019-12-26] MEDS: SERTRALINE 50 MG TAB PO SCH (08:39)
--- NOTE | 2019-12-26 14:21 | P.PN ---
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 She is laying in bed. She would not get out of bed for the interview and would not come into my office. She continued to to refuse prescribed medications stating that she would only take medications as prescribed by "Dr. Bullock." She is aware that she has a probate hearing tomorrow but believes that she will be d ischarge afterwards. She became distressed when I explained to her that the purpose of the probate hearing was to "force" her to take the prescribed psychotropic medications. She slept 7 hours last night. She is refusing all prescribed medications. She's had no episodes of behavioral dyscontrol and has received no when necessary medications. She ate 1/2 of her dinner yesterday and did not eat breakfast or lunch today. Mental status exam: She presented as a thin, frail and disheveled appearing elderly woman who pacing her room with her hands folded in a praying position. She made intermittent eye contact. She was irritable, guarded and suspicious. She did not express suicidal ideation or homicidal ideation. She had poverty of speech and poverty of content. She was also talking herself as though she were responding to internal stimuli. Assessment: She remains severely mentally ill and is refusing treatment all treatment. Plan: Continue inpatient hospitalization. Continue safety precautions. Probate hearing is scheduled for 12/27/2019. Monitor hydration and diet. Continue Prolixin 5 mg daily and preparation for the transition to a long-acting injectable antipsychotic. Once we receive a treatment order we can administer antipsychotic medication IM and transition to a long-acting injectable. We will need to obtain a basic metabolic panel after the court order. Encourage participation in therapeutic groups and activities. Evaluate clinical status response to treatment daily basis.
[2019-12-27] MEDS: SERTRALINE 50 MG TAB PO SCH (09:39)
[2019-12-27] MEDS: PANTOPRAZOLE 40 MG TABLET PO SCH (09:39)
[2019-12-27] MEDS ORDERED: flUPHENAZine 2.5 MG/ML (MDV) 10 ML VIAL IM PRN (11:10)
--- NOTE | 2019-12-27 13:17 | P.PN ---
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 She refused to speak with me but came out of her room for the probate hearing. She complained to the engineering teacher that her rights were violated and that her commonwealth attorney made no effort to speak with her. After listening to her commonwealth attorney's description of his efforts to speak with her, but shows she agreed to proceed with the hearing and she received a 60/90 day combined treatment order. Mental status exam: She presented as a thin, frail and disheveled appearing elderly woman who pacing her room with her hands folded in a praying position. She made intermittent eye contact. She was irritable, guarded and suspicious. She did not express suicidal ideation or homicidal ideation. She had poverty of speech and poverty of content. She was also talking herself as though she were responding to internal stimuli. Assessment: She remains severely mentally ill and is refusing treatment all treatment. Plan: Continue inpatient hospitalization. Continue safety precautions. Monitor hydration and diet. Continue Prolixin 5 mg daily and preparation for the transition to a long-acting injectable antipsychotic. Begin Prolixin 1.25 mg IM when necessary daily for refuses the oral dose. We will need to obtain a basic metabolic panel after the court order. Encourage participation in therapeutic groups and activities. Evaluate clinical status response to treatment daily basis.
[2019-12-28] MEDS: SERTRALINE 50 MG TAB PO SCH (09:13)
[2019-12-28] MEDS: PANTOPRAZOLE 40 MG TABLET PO SCH (09:13)
--- NOTE | 2019-12-28 15:07 | P.PN ---
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 Since the probate hearing She's been compliant with treatment. She is tending therapeutic groups and activities and fully compliant with prescribed medications. She denied problems or concerns. Mental status exam: She presented as a thin, frail and disheveled appearing elderly woman who was pleasant on approach.. She made intermittent eye contact. She made eye contact and appeared to attend to interview. She was not irritable or guarded. She did not express suicidal ideation or homicidal ideation. She had poverty of speech and poverty of content. She was not talking herself as though she were responding to internal stimuli. Assessment: She showed marked turnabout after the probate hearing Plan: Continue inpatient hospitalization. Continue safety precautions. Monitor hydration and diet. Continue Prolixin 5 mg daily and preparation for the transition to a long-acting injectable antipsychotic. Continue Prolixin 1.25 mg IM when necessary daily for refuses the oral dose. We will need to obtain a basic metabolic panel after the court order. Encourage participation in therapeutic groups and activities. Evaluate clinical status response to treatment daily basis.
[2019-12-29 08:28] LABS: African American GFR (CKD) >90 (>60 ml/min/1.73 sqM); Anion Gap 3 mmol/L; Blood Urea Nitrogen 14 mg/dL (7-17); Calcium 9.4 mg/dL (8.4-10.2); Carbon Dioxide 33 mmol/L (22-30); Chloride 104 mmol/L (98-107); Glucose 93 mg/dL (74-99); Non-African American GFR(CKD) 80 (>60 ml/min/1.73 sqM); Potassium 4.6 mmol/L (3.5-5.1); Sodium 140 mmol/L (137-145)
[2019-12-29] MEDS: SERTRALINE 50 MG TAB PO SCH (10:53)
[2019-12-29] MEDS: PANTOPRAZOLE 40 MG TABLET PO SCH (10:53)
--- NOTE | 2019-12-29 12:25 | P.PN ---
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 She readily came into my office for the interview. She denied problems or concerns other than missing her family. She was unable to explain why she had refused her medications. She denied side effects to either Prolixin or Zoloft. She allowed the blood draw and the repeat basic metabolic panel had a normal sodium, potassium, chloride and BUN. Mental status exam: She presented as a thi and appearing elderly woman who was pleasant on approach.. She made intermittent eye contact and appeared to attend to the interview She was not irritable or guarded. She had a depressed facial expression and cried intermittently during the interview. She did not express suicidal ideation or homicidal ideation. Her speech was spontaneous with decreased rate, rhythm and volume. She did not appear to be responding to internal stimuli. Assessment: She was messed much less irritable and guarded. She's been complian t with prescribed medications. Plan: Continue inpatient hospitalization. Continue safety precautions. Monitor hydration and diet. Continue Prolixin 5 mg daily and preparation for the transition to a long-acting injectable antipsychotic. Increase Zoloft to 100 mg daily. Continue Prolixin 1.25 mg IM when necessary daily for refuses the oral dose. Encourage participation in therapeutic groups and activities. Evaluate clinical status response to treatment daily basis.
[2019-12-30] MEDS: SERTRALINE 100 MG TAB PO SCH (08:34)
[2019-12-30] MEDS: PANTOPRAZOLE 40 MG TABLET PO SCH (08:34)
--- NOTE | 2019-12-30 10:55 | P.PN ---
Progress Note - Text Progress Note Date: 12/30/19 Interval history: Patient was seen wandering the hallways and was directable and agreeable to s peak with underwriter solicitation director. Patient appeared to be appropriate with underwriter solicitation director and was polite. Patient states that she was hard of hearing during conversation. She states that she has been taking her medications and finding them helpful. She states that her mood is been improving on the unit and denied any psychotic symptoms at this time. She states that she has been going to several groups during the day. She also claims that she was able to sleep well throughout the night. She was asking about potential discharge today. At this time patient denies any suicidal or homicidal ideations intent or plan. Denies any Auditory or visual hallucinations. Patient denies any side effects from the medications and has been compliant with meds. Mental status exam: General Appearance: Patient appears to be within an short in stature, stated age is alert, directable, and cooperative. Behavior: No agitated behavior. Patient is calm and directable polite. Speech: Patient's speech is fluent and nonpressured. Mood/Affect: Mood is improving mildly, affect is congruent and constricted. Suicidality/Homicidality: Patient denies having any suicidal or homicidal ideation intent or plan. Perceptions: Patient denies any auditory or visual hallucinations. Though content/process: There is no evidence of any delusional thought content and thought process is linear and goal-directed. Memory and concentration: AOX3, grossly intact for the purposes of this session Judgment and insight: improving mildly Assessment/Plan: Continue with current diagnosis. Patient continues to meet criteria for inpatient psychiatric admission for symptom stabilization and safety.Patient will be maintained on current psychotropic medication regimen. Monitor for medication compliance and for any psychotropic medication side effects. Will continue to monitor ongoing response to treatment. Encouraged participation in milieu.
[2019-12-31] MEDS: PANTOPRAZOLE 40 MG TABLET PO SCH (08:34)
[2019-12-31] MEDS: SERTRALINE 100 MG TAB PO SCH (08:34)
--- NOTE | 2019-12-31 11:39 | P.PN ---
Progress Note - Text Progress Note Date: 12/31/19 Interval history: Patient was seen wandering the hallways and was directable and agreeable to s peak with medical underwriter. Patient appeared to be appropriate with medical underwriter and was polite. She states that she has been taking her medications and finding them helpful. She claims that she is feeling somewhat tired after she takes the Prolixin during the day and was agreeable to have it switch to twice a day dosing. She states that her mood is been improving on the unit and denied any psychotic symptoms at this time. She states that she has been going to several groups during the day. She also claims that she was able to sleep well throughout the night. At this time patient denies any suicidal or homicidal ideations intent or plan. Denies any Auditory or visual hallucinations. Patient denies any side effects from the medications and has been compliant with meds. Mental status exam: General Appearance: Patient appears to be within an short in stature, stated age is alert, directable, and cooperative. Behavior: No agitated behavior. Patient is calm and directable polite. Speech: Patient's speech is fluent and nonpressured. Mood/Affect: Mood is improving mildly, affect is congruent and constricted. Suicidality/Homicidality: Patient denies having any suicidal or homicidal ideation intent or plan. Perceptions: Patient denies any auditory or visual hallucinations. Though content/process: There is no evidence of any delusional thought content and thought process is linear and goal-directed. Memory and concentration: AOX3, grossly intact for the purposes of this session Judgment and insight: improving mildly Assessment/Plan: Continue with current diagnosis. Patient continues to meet criteria for inpatient psychiatric admission for symptom stabilization and safety.Patient will be maintained on current psychotropic medication regimen, with the exception of changing Prolixin by mouth to 2.5 mg twice a day. Monitor for medication compliance and for any psychotropic medication side effects. Will continue to monitor ongoing response to treatment. Encouraged participation in milieu.
[2020-01-01] MEDS: PANTOPRAZOLE 40 MG TABLET PO SCH (08:54)
[2020-01-01] MEDS: SERTRALINE 100 MG TAB PO SCH (08:54)
--- NOTE | 2020-01-01 15:09 | P.PN ---
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 She readily came into my office for the interview. She denied problems or concerns. She again stated that she does not know why she refused to take medication or cooperate with treatment. She denied feeling depressed or having thoughts of or suicide. She denied experiencing psychotic symptoms such as hallucinations, ideas reference etc. She feels less sedated after her Prolixin dose is changed to 200 mg twice a day. Repeat basic metabolic panel showed a sodium 140, potassium 4.6, BUN 14 and creatinine of 0.77. Mental status exam: She presented as a thin and frail appearing elderly woman who was pleasant on approach. She made eye contact and attended to the interview She was not irritable or guarded. She had a blunted facial expression. She did not express suicidal ideation or homicidal ideation. Her speech was spontaneous with decreased rate, rhythm and volume. She did not appear to be responding to internal stimuli. Assessment: She is much improved from admission for compliant with prescribed medications. Plan: Continue inpatient hospitalization. Continue safety precautions. Monitor hydration and diet. Continue Prolixin 2.5 mg BID the medical there is no need for Holly decanoate at this time since she is fully compliant with the medication. Continue Zoloft to 100 mg daily. Continue Prolixin 1.25 mg IM when necessary daily for refuses the oral dose. Encourage participation in therapeutic groups and activities. Evaluate clinical status response to treatment daily basis.
[2020-01-02 07:05] VITALS: BP 101/54; PULSE 78; RESP 18; TEMP 98.2
[2020-01-02] MEDS: PANTOPRAZOLE 40 MG TABLET PO SCH (09:08)
[2020-01-02] MEDS: SERTRALINE 100 MG TAB PO SCH (09:08)
--- NOTE | 2020-01-02 13:46 | P.DS ---
Providers Date of admission: 12/13/19 11:58 Attending physician: Hussein Bond MD Consults: 12/13/19 12:19 Consult Physician Routine Consulting Provider: Eusebio Lewis Consult Reason/Comments: New Admission H & P Do you want consulting provider notified?: Yes 12/15/19 14:35 Consult Physician Routine Consulting Provider: Eusebio Lewis Consult Reason/Comments: elevated B12 Do you want consulting provider notified?: Yes Primary care physician: Hussein Bullock - Discharge Diagnosis(es) (1) Major depressive disorder, recurrent severe without psychotic features Current Visit: Yes Status: Acute Priority: High (2) Involuntary commitment Current Visit: Yes Status: Acute Priority: High Hospital Course: She is a 69-year-old Citizen Of [place] female admitted to the psychiatric unit involuntarily. Her daughter completed a petition that described a marked change in her behavior. According to the petition the patient has not been sleeping or eating. She was talking to relatives. She also locked herself in the bathroom and was pouring "chemicals" on the train with the windows closed. I reviewed the medical record, interviewed patient and spoke with her daughter in the telephone. When I approached her room I heard her talking loudly as though she were caring on conversation with a roommate but she was in the room alone. When asked her who she was speaking to she replied "no one." She came to my office voluntarily but provided little information. She was guarded and suspicious. She stated that she came in the hospital because "my daughter wanted me here." She was focused on somatic symptoms complaining of "chest pressure" and "indigestion" but when I summarized her concerns she denied that she had expressed concern about her physical health. She admitted that she has had difficulty sleeping and has lost her appetite. She denied changes in her interests or activities. She denied that she experienced thoughts of or suicide. When asked questions about feelings of guilt she talked about going to correction for committing a crime. She refused to talk about this concern and referred me to her president ergonomic consulting. She denied experiencing auditory, visual or olfactory hallucinations. She denied ideas of reference, thought insertion, thought broadcasting or thought control. She denied use of alcohol or drugs. Her daughter stated that she is normally active person. For example, she goes to the gym 3-5 days per week. Over the last few weeks she's been very different. She is talking herself and talking to relatives. She talks to her, , first and also talks with her mother. Her daughter described her having animated conversations and asking these imaginary people to "quiet down" when other people in the room. She is not eating and lays in bed for half day. In retrospect, her daughter believes that the change began 1 month ago and became "extreme" over the last 2-3 weeks. She asked her daughter to take her "anxiety medications" from her because she was going to correction. Her daughter explained that her mother developed a belief that she had committed a crime because "several years ago" she signed her son-in-law's name to help her daughter nagel a check that was issued and a daughter and the daughter's 's name. She denied a history of psychiatric hospitalizations or psychiatric treatment. However, her daughter stated that she's been treated by a primary care provider in [facility] for many years for "anxiety". Her daughter read the labels of various medications including bupropion, BuSpar, Paroxetine and atomoxetine. HOSPITAL COURSE: We admitted the psychiatric unit involuntarily under the care of this blurb writer. We provided a Biopsychosocial assessment. The call center consultant commercial loan manager completed initial physical exam and medical history and diagnosis or history of tobacco use or family. The call center consultant recommended a nicotine patch replacement. We initially treated her depression and psychotic symptoms with combination of sertraline and Seroquel. She was nicely compliant and appeared on the course of recovery. Then she began to refuse all medications. She refused to go to bed and was refusing to eat her meals. We had concerns about dehydration and she refused blood draws. She refused to speak with her court appointed group home manager. Times, her speech was gibberish or she refused to speak. The oppositional behavior continued up until the probate hearing. Afterwards, she showed a marked change where she began compliant with medications and participate in therapeutic groups and activities. We titrated the sertraline 100 mg daily, discontinued Seroquel and treatment of the psychotic symptoms with Prolixin. STATUS AT DISCHARGE: She presented as a thin casually groomed 69-year-old female who was pleasant on approach. She made eye contact and attended the interview. She had no distinguishing features or prominent physical difficulties. She had a blunted but bright facial expression. She was alert and oriented to person, place and time. She had no abnormality of psychomotor activity. She was not agitated or restless. Her speech was spontaneous with decreased rate and rhythm. Affect was depressed but reactive. She denied suicidal ideation, wishes or homicidal ideation. She denied feeling hopeless, helpless or worthless. She did not express ideas reference, paranoid ideation or delusions. Her thinking was concrete. Associations were coherent and logical. She denied hallucinations and did not appear to responding to internal stimuli. DISPOSITION: She is discharged with prescriptions for Zoloft 100 mg daily and Prolixin 2.5 mg twice a day. She has a follow-up appointment at [facility] at 01/03/2020 at 9:30 AM. She is on a 60/90 day combine treatment order. Patient Condition at Discharge: Stable Plan - Discharge Summary New Discharge Prescriptions: New fluPHENAZine [Prolixin] 2.5 mg PO BID #15 tab Sertraline [Zoloft] 100 mg PO DAILY #30 tab Continue Alendronate Sodium [Fosamax] 70 mg PO Q7D Discontinued PARoxetine [Paxil] 10 mg PO DAILY busPIRone HCl [Buspar] 10 mg PO BID buPROPion XL [Wellbutrin Xl] 150 mg PO DAILY Clindamycin Topical Soln [Cleocin-T Topical Soln] 1 applic TOPICAL BID Atomoxetine HCl [Strattera] 60 mg PO DAILY Discharge Medication List Alendronate Sodium [Fosamax] 70 mg PO Q7D 12/13/19 [History] Sertraline [Zoloft] 100 mg PO DAILY #30 tab 01/02/20 [Rx] fluPHENAZine [Prolixin] 2.5 mg PO BID #15 tab 01/02/20 [Rx] Follow up Appointment(s)/Referral(s): [facility] [Outside] - 01/03/20 9:30 am (Dorota by phone ) Hussein Bullock MD [Primary Care Provider] - 1-2 days Activity/Diet/Wound Care/Special Instructions: Activity and diet as tolerated. Avoid the use of street drugs and alcohol. Take all medications as prescribed. When you are in need of refills on your medications please contact your medical provider and/or outpatient psychiatrist to have this done. Please go to scheduled outpatient appointment for aftercare treatment. If symptoms return or become worse, call the crisis line at and/or go to the nearest emergency room for evaluation. Discharge Disposition: HOME SELF-CARE
== END 2020-01-02 13:40 | disposition home or self-care (01) | DRG 885 ==
LOC: EC 06:00 → 3MHU 11:58
PROVIDERS: ADMIT Psychiatry & Neurology Psychiatry; ATTEND Psychiatry & Neurology Psychiatry
DX: F33.3 Major depressive disorder, recurrent, severe with psychotic symptoms (principal); E86.0 Dehydration; H91.90 Unspecified hearing loss, unspecified ear; F41.9 Anxiety disorder, unspecified; G47.9 Sleep disorder, unspecified; Z79.83 Long term (current) use of bisphosphonates; Z79.899 Other long term (current) drug therapy; Z87.891 Personal history of nicotine dependence
CPT/HCPCS: 36415; 80048; 80053; 80061; 80306; 80320; 81001; 82140; 82550; 82607; 82747; 83036; 83735; 84443; 85025; 85610; 85730; 93005; 96374; 99285

== ENCOUNTER → 2022-02-03 | Outpatient (CLI) | payer MEDICARE ==
--- NOTE | 2022-02-04 18:00 | MM ---
Reason for Exam: Screening (asymptomatic). Last mammogram was performed 3 year(s) and 1 month(s) ago. Patient History: Menarche at age 14. First Full-Term at age 19. Left ovary removed at age 42. Right ovary removed at age 42. Hysterectomy at age 42. Postmenopausal. Risk Values: Krystin 5 year model risk: 1.2%. NCI Lifetime model risk: 3.7%. Prior Study Comparison: 05/19/2017 Bilateral MG screening mammo w CAD - 2, [place]. 01/05/2019 Bilateral MG screening mammo w CAD - 2, [place]. Tissue Density: There are scattered fibroglandular densities. Findings: Analyzed By CAD. There is some benign calcification within the left breast. No significant interval changes are evident. No suspicious groups of microcalcifications, spiculated or lobular masses, architectural distortion or other secondary signs of malignancy are mammographically apparent. Overall Assessment: Benign, BI-RAD 2 Management: Screening Mammogram of both breasts in 1 year. A negative mammogram report should not preclude additional follow up of suspicious palpable abnormalities. Patient should continue monthly self breast exam. A clinical breast exam by your physician is recommended on an annual basis and results should be correlated with mammographic findings. Electronically signed and approved by: Adolfo Watson D.O. Radiologis
== END | disposition home or self-care (01) ==
LOC: RADMAMWWP 10:27
PROVIDERS: ATTEND Family Medicine
DX: Z12.31 Encounter for screening mammogram for malignant neoplasm of breast (principal); Z78.0 Asymptomatic menopausal state
CPT/HCPCS: 77063; 77067

== ENCOUNTER → 2022-02-13 | Day surgery (SDC) | payer MEDICARE ==
[2022-02-12 11:01] VITALS: BMI 25.0
[~2022-02-13] MED LIST: LACTATED RINGERS 1,000 ML IV SCH
== END ==
LOC: ORWHC2ENDO 07:33
PROVIDERS: ATTEND Internal Medicine Gastroenterology
DX: R19.5 Other fecal abnormalities (principal); Z53.29 Procedure and treatment not carried out because of patient's decision for other reasons; Z79.899 Other long term (current) drug therapy

== ENCOUNTER 2022-04-08 07:51 | Day surgery (SDC) | payer MEDICARE ==
[2022-04-07 10:26] VITALS: BMI 26.0
[~2022-04-08 07:51] MED LIST changes: +LIDOCAINE 1% (10MG/ML) FOR IV START INTRADERMA PRN
[2022-04-08 09:01] VITALS: TEMP 98
[2022-04-08] MEDS ORDERED: PROPOFOL 10 MG/ML 20 ML VIAL IV ONE (09:46)
--- NOTE | 2022-04-08 10:03 | P.PCN ---
Date of Procedure: 04/08/22 Procedure(s) Performed: BRIEF HISTORY: Patient is a 71-year-old pleasant white female scheduled for an elective colonoscopy as a part of screening for colon cancer and positive cologuard PROCEDURE PERFORMED: Colonoscopy. PREOPERATIVE DIAGNOSIS: Screening for colon cancer and positive cologuard. IV sedation per Anesthesia. PROCEDURE: After informed consent was obtained, the patient, was brought into the endoscopy unit. IV sedation was administered by Anesthesia under continuous monitoring. Digital rectal examination was normal. Initially the Olympus CF-160 flexible video colonoscope was then inserted in the rectum, gradually advanced into the cecum without any difficulty. Careful examination was performed as the scope was gradually being withdrawn. Ileocecal valve and the appendiceal orifice were visualized and appeared normal. Prep was excellent. Mucosa of the cecum, ascending colon, transverse colon, descending colon, sigmoid colon, and rectum appeared normal. Retroflexion was performed in the rectum and no lesions were seen. The patient tolerated the procedure well. IMPRESSION: Normal-appearing colon from rectum to cecum with no evidence of colorectal neoplasia. RECOMMENDATIONS: Findings of this examination were discussed with the patient as well as a family. She was advised to have a repeat screening colonoscopy in 10 years.
[2022-04-08 10:31] VITALS: BP 107/72; PULSE 59; RESP 16
== END 2022-04-08 10:45 | disposition home or self-care (01) ==
LOC: ORWHC2ENDO 07:51
PROVIDERS: ATTEND Internal Medicine Gastroenterology
DX: Z12.11 Encounter for screening for malignant neoplasm of colon (principal); R19.5 Other fecal abnormalities; F41.9 Anxiety disorder, unspecified; Z79.899 Other long term (current) drug therapy
CPT/HCPCS: G0121; J2704; 45378